=== PATIENT | male | born 1985 | race American Indian/Alaskan Native ===

== ENCOUNTER 2019-08-01 07:47 | Emergency (ER) | payer OTHER ==
[2019-08-01 07:51] VITALS: BP 158/101
--- NOTE | 2019-08-01 08:24 | Emergency Department Report ---
- General Chief complaint: Skin/Abscess/Foreign Body Stated complaint: RT SIDE LOWER STOMACH BOIL/PAIN Time Seen by Provider: 08/01/19 08:19 Source: patient Mode of arrival: Ambulatory Limitations: No Limitations - History of Present Illness Initial comments: Mr. Pacheco is a very pleasant healthy male with hx of abscesses and staph infection. He has abscess in his pubic region. The abscess is small. Has been present for one month. MD complaint: abscess/boil -: Gradual, month(s) (1) Location: genitals Severity: mild Quality: aching Improves with: none Worsens with: none Context: other (hx of abscess and staph infection) Associated symptoms: denies other symptoms Treatments Prior to Arrival: none - Related Data Previous Rx's Medication Instructions Recorded Last Taken Type Sulfamethoxazole/Trimethoprim 1 each PO BID 10 Days #20 tablet 08/01/19 Unknown Rx [Bactrim DS TAB] cephALEXin [Keflex] 500 mg PO QID 10 Days #40 capsule 08/01/19 Unknown Rx Allergies Allergy/AdvReac Type Severity Reaction Status Date / Time No Known Allergies Allergy Unverified 08/01/19 07:48 Abscess Boil HPI - HPI Chief Complaint: Skin/Abscess/Foreign Body Stated Complaint: RT SIDE LOWER STOMACH BOIL/PAIN Time Seen by Provider: 08/01/19 08:19 Home Medications: Previous Rx's Medication Instructions Recorded Last Taken Type Sulfamethoxazole/Trimethoprim 1 each PO BID 10 Days #20 tablet 08/01/19 Unknown Rx [Bactrim DS TAB] cephALEXin [Keflex] 500 mg PO QID 10 Days #40 capsule 08/01/19 Unknown Rx Allergies/Adverse Reactions: Allergies Allergy/AdvReac Type Severity Reaction Status Date / Time No Known Allergies Allergy Unverified 08/01/19 07:48 ED Review of Systems ROS: Stated complaint: RT SIDE LOWER STOMACH BOIL/PAIN Other details as noted in HPI Gastrointestinal: denies: abdominal pain, nausea, vomiting, diarrhea, constipation Skin: lesions Neurological: denies: headache, weakness ED Past Medical Hx - Past Medical History Previous Medical History?: No - Surgical History Past Surgical History?: No - Social History Smoking Status: Current Every Day Smoker Substance Use Type: None - Medications Home Medications: Home Medications Medication Instructions Recorded Confirmed Last Taken Type Sulfamethoxazole/Trimethoprim 1 each PO BID 10 Days #20 tablet 08/01/19 Unknown Rx [Bactrim DS TAB] cephALEXin [Keflex] 500 mg PO QID 10 Days #40 capsule 08/01/19 Unknown Rx ED Physical Exam - General Limitations: No Limitations General appearance: alert, in no apparent distress - Head Head exam: Present: atraumatic, normocephalic - Eye Eye exam: Present: normal appearance - GI/Abdominal GI/Abdominal exam: Present: soft. Absent: distended, tenderness, guarding - exam: Present: other (upper pubic region 3 cm abscess no surrounding erythema) ED Course Vital Signs 08/01/19 07:49 Temperature 97.3 F L Pulse Rate 72 Respiratory 16 Rate Blood Pressure 158/101 O2 Sat by Pulse 96 Oximetry ED Medical Decision Making - Medical Decision Making simple abscess in pubic region without surrounding cellulitis. Rx: bactrim keflex I&D not necessary at this time Mr. Pacheco understands return instructions Critical care attestation.: If time is entered above; I have spent that time in minutes in the direct care of this critically ill patient, excluding procedure time. ED Disposition Clinical Impression: Abscess Disposition: DC-01 TO HOME OR SELFCARE Is pt being admited?: No Does the pt Need Aspirin: No Condition: Stable Instructions: Abscess (ED) Prescriptions: Sulfamethoxazole/Trimethoprim [Bactrim DS TAB] 1 each PO BID 10 Days #20 tablet cephALEXin [Keflex] 500 mg PO QID 10 Days #40 capsule Forms: Work/School Release Form(ED)
== END 2019-08-01 08:34 | disposition home or self-care (01) ==
LOC: ED 07:47
DX: L02.214 Cutaneous abscess of groin (principal); F17.200 Nicotine dependence, unspecified, uncomplicated; Z79.899 Other long term (current) drug therapy